=== PATIENT | female | born 1980 | race Caucasian/White ===

== ENCOUNTER 2023-06-11 14:29 | Emergency (ER) | payer OTHER ==
[~2023-06-11] VITALS: Ht 160 cm; Wt 95.3 kg
[2023-06-11] MEDS ORDERED: METOCLOPRAMIDE HCL 10 MG/2 ML VIAL IV ONE (14:45)
[2023-06-11] MEDS ORDERED: KETOROLAC TROMETHAMINE 30 MG INJ IVP ONE (14:45)
[2023-06-11] MEDS ORDERED: IV NORMAL SALINE 1000 ML BAG IV ONE (14:45)
[2023-06-11] MEDS ORDERED: METOCLOPRAMIDE HCL 10 MG/2 ML VIAL ONE (14:54)
[2023-06-11] MEDS ORDERED: KETOROLAC TROMETHAMINE 30 MG INJ ONE (14:54)
[2023-06-11] MEDS ORDERED: diphenhydrAMINE 50 MG/1 ML VIAL IV ONE (15:00)
[2023-06-11] MEDS ORDERED: diphenhydrAMINE 50 MG/1 ML VIAL ONE (15:13)
[2023-06-11] MEDS ORDERED: ONDANSETRON 4 MG/2 ML VIAL ONE (15:39)
[2023-06-11] MEDS ORDERED: HYDROMORPHONE 1 MG/1 ML DISP.SYRIN ONE ×2 (15:40→17:12)
[2023-06-11] MEDS ORDERED: HYDROMORPHONE 1 MG/1 ML DISP.SYRIN IV ONE ×2 (15:45→17:15)
[2023-06-11] MEDS ORDERED: ONDANSETRON 4 MG/2 ML VIAL IV ONE (15:45)
[2023-06-11] MEDS ORDERED: HYDR-4209 PO (17:17)
[2023-06-11 17:49] VITALS: BP 125/75; TEMP 98.4; O2SAT 97
== END 2023-06-11 17:50 | disposition home or self-care (01) ==
LOC: ER 14:29
DX: G43.909 Migraine, unspecified, not intractable, without status migrainosus (principal)
CPT/HCPCS: 99285; 96374; 96375; 70450; 96361; 96376; J1200; J1885; J2765; J2405; J1170 ×2; J7040; A4663

== ENCOUNTER 2024-02-07 11:59 | Emergency (ER) | payer OTHER ==
[~2024-02-07] VITALS: Ht 157.5 cm; Wt 86.2 kg
[~2024-02-07 11:59] MED LIST: HYDR-4209 PO
[2024-02-07] MEDS ORDERED: METOCLOPRAMIDE HCL 10 MG/2 ML VIAL ONE (12:16)
[2024-02-07] MEDS ORDERED: KETOROLAC TROMETHAMINE 60 MG INJ IM ONE (12:16)
[2024-02-07] MEDS: METOCLOPRAMIDE HCL 10 MG TABLET PO ONE (12:21)
[2024-02-07] MEDS: KETOROLAC TROMETHAMINE 60 MG INJ IM ONE (12:21)
[2024-02-07] MEDS ORDERED: MORPHINE SULFATE 4 MG/1 ML DISP.SYRIN ONE (12:53)
[2024-02-07] MEDS ORDERED: MORPHINE SULFATE 2 MG/1 ML DISP.SYRIN ONE (12:54)
[2024-02-07] MEDS: MORPHINE SULFATE 4 MG/1 ML DISP.SYRIN IM ONE (12:58)
[2024-02-07 13:13] VITALS: BP 129/70; O2SAT 97
== END 2024-02-07 13:15 | disposition home or self-care (01) ==
LOC: ER 11:59
DX: G43.909 Migraine, unspecified, not intractable, without status migrainosus (principal); Z79.899 Other long term (current) drug therapy
CPT/HCPCS: 99284; 96372 ×2; J1885; J2765; J2270 ×2; A4606; A4663

== ENCOUNTER 2024-04-08 21:13 | Emergency (ER) | payer OTHER ==
[~2024-04-08] VITALS: Ht 157.5 cm; Wt 86.2 kg
[2024-04-08 21:53] LABS: BASOPHILS # (AUTO) 0.1 K/UL (0.0-0.2); BASOPHILS % (AUTO) 1.1 % (0.0-2.0); EOSINOPHILS # (AUTO) 0.6 K/uL (0.0-0.7); EOSINOPHILS % (AUTO) 5.7 % (0.0-7.0); HEMATOCRIT 38.2 % (31.2-41.9); HEMOGLOBIN 12.7 g/dL (10.9-14.3); LYMPHOCYTES # (AUTO) 3.8 K/uL (0.8-4.8); LYMPHOCYTES % (AUTO) 36.8 % (20.5-51.5); MEAN CORPUSCULAR HGB CONC 33 g/dL (32.3-35.6); MEAN CORPUSCULAR VOLUME 90.4 fL (75.5-95.3); MONOCYTES # (AUTO) 0.6 K/uL (0.1-1.30); MONOCYTES % (AUTO) 6.3 % (0.0-11.0); NEUTROPHILS # (AUTO) 5.1 K/uL (1.8-8.9); NEUTROPHILS % (AUTO) 50.1 % (38.5-71.5); PLATELET COUNT (AUTO) 304 K/uL (179-408); RED BLOOD CELL COUNT(AUTO) 4.23 MIL/uL (3.63-4.92); RED CELL DISTRIBUTION WIDTH 14.4 % (12.3-17.7); WHITE BLOOD COUNT (AUTO) 10.2 K/uL (3.8-11.8)
[2024-04-08 21:56] LABS: DIFFERENTIAL COMMENT 1
[2024-04-08 22:03] LABS: CALCIUM 8.3 mg/dL (8.5-10.1); CARBON DIOXIDE 26 mmol/L (21-32); CHLORIDE 104 mmol/L (98-107); CREATININE 0.3 mg/dL (0.6-1.3); GLUCOSE 91 mg/dL (74-106); SODIUM SERUM 142 mmol/L (136-145); UREA NITROGEN, BLOOD 9 mg/dL (7-18)
[2024-04-08] MEDS ORDERED: MAGNESIUM SULFATE/D5W 100 ML ONE ×2 (22:05→23:09)
[2024-04-08] MEDS ORDERED: THIAMINE HCL 200 MG/2 ML VIAL ONE (22:05)
[2024-04-08] MEDS ORDERED: LORAZEPAM 2 MG/1 ML VIAL ONE (22:06)
[2024-04-08 22:08] LABS: ALANINE AMINOTRANSFERASE 27 U/L (14-59); ALBUMIN 3.5 g/dL (3.4-5.0); ALKALINE PHOSPHATASE 61 U/L (50-136); ASPARTATE AMINOTRANSFERASE 30 U/L (15-37); BILIRUBIN,DIRECT 0.2 mg/dL (0.0-0.2); BILIRUBIN,TOTAL 0.8 mg/dL (0.2-1.0); TOTAL PROTEIN, SERUM 6.8 g/dL (6.4-8.2)
[2024-04-08] MEDS: IV D5 1/2 NS 1000 ML 1,000 ML IV ONE (22:13)
[2024-04-08] MEDS: MAGNESIUM SULFATE/D5W 100 ML IV ONE (22:14)
[2024-04-08] MEDS: THIAMINE HCL 200 MG/2 ML VIAL IV ONE (22:18)
[2024-04-08] MEDS: LORAZEPAM 2 MG/1 ML VIAL IV ONE (22:18)
[2024-04-08 23:28] LABS: *BILIRUBIN,URIN NEGATIVE (NEGATIVE); *BLOOD, URINE NEGATIVE (NEGATIVE); *CLARITY,URINE CLEAR (CLEAR); *COLOR,URINE YELLOW (YELLOW); *KETONES,URINE 1+ (NEGATIVE); *PROTEIN,URINE NEGATIVE (NEGATIVE); *UROBILINOGEN,URINE 0.2 E.U./dl (NORMAL); LEUKOCYTE ESTERASE ,URINE NEGATIVE (NEGATIVE); NITRITE, URINE NEGATIVE (NEGATIVE); UGLUCOSE NEGATIVE (NEGATIVE)
[2024-04-08 23:43] LABS: *AMPHETAMINE, URINE POSITIVE (NEGATIVE); *BARBITURATE, URINE NEGATIVE (NEGATIVE); *BENZODIAZEPINE, URINE POSITIVE (NEGATIVE); *CANNABINOID, URINE NEGATIVE (NEGATIVE); *COCCAINE, URINE NEGATIVE (NEGATIVE); *OPIATE, URINE NEGATIVE (NEGATIVE); *PHENCYCLIDINE SCREEN,URINE NEGATIVE (NEGATIVE)
[2024-04-08] MEDS ORDERED: POTASSIUM BICARBONATE/CIT AC 25 MEQ TABLET.EFF ONE (23:59)
[2024-04-09 00:06] LABS: FENTANYL, URINE NEGATIVE (NEGATIVE)
[2024-04-09] MEDS: POTASSIUM BICARBONATE/CIT AC 25 MEQ TABLET.EFF PO ONE (00:07)
[2024-04-09] MEDS ORDERED: DIAZ10TA4 PO (00:31)
[2024-04-09 00:41] VITALS: BP 121/71; TEMP 98.6; O2SAT 99
[2024-04-09 13:24] LABS: BACTERIA,URINE FEW /HPF (NONE SEEN); RBC,URINE NONE SEEN /HPF (0-3); SQUAMOUS EPITHELIAL CELL,UR FEW /HPF (NONE SEEN); WBC,URINE 0-3 /HPF (0-3)
== END 2024-04-09 00:41 | disposition home or self-care (01) ==
LOC: ER 21:17
DX: F10.129 Alcohol abuse with intoxication, unspecified (principal); F15.10 Other stimulant abuse, uncomplicated; G43.909 Migraine, unspecified, not intractable, without status migrainosus; Z79.891 Long term (current) use of opiate analgesic; Z79.899 Other long term (current) drug therapy; Y90.0 Blood alcohol level of less than 20 mg/100 ml
CPT/HCPCS: 80076; 80048; 81001; 83690; 83735; 85025; 36415; 99284; 96365; 96366; 96375; 80320; 80307; J2060; J3475 ×2; J3411; A4606; A4663; G0480